=== PATIENT | male | born 1990 | race Hispanic/Latino ===

== ENCOUNTER 2019-08-07 01:33 | Emergency (ER) | payer OTHER ==
[2019-08-07] MEDS ORDERED: Iopamidol 612 MG/ML 100 ML Bottle IVPUSH ONE (01:39)
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
[2019-08-07] MEDS ORDERED: Diphtheria,Pertussis(Acell),Tetanus Vaccine 0.5 ML Syringe IM ONE (03:17)
--- NOTE | 2019-08-08 09:42 | CT ---
CT thoracic spine Technique: Multiple axial sections through the thoracic spine were obtained. Reconstructed coronal and sagittal images were reviewed. Findings: Vertebral body heights and disc spaces are maintained. No fracture is seen. No central canal stenosis is noted. No neural foraminal stenosis is seen. Impression: 1. Nothing acute is appreciated on CT study of the thoracic spine. Diagnostic code #1 I agree with preliminary report from [facility], finalized on 08/07/19, 4:38 AM Central Time
--- NOTE | 2019-08-08 09:42 | CT ---
CT lumbar spine Technique: Multiple axial sections were obtained through the lumbar spine. Reconstructed coronal and sagittal images were reviewed. Findings: Spondylitic defects are noted at L5-S1 on both sides. Vertebral body heights and disc spaces are maintained. No acute fracture is appreciated. No acute disc herniation is seen. No central canal stenosis or neural foraminal stenosis is seen. No abnormal subluxation is seen. Impression: 1. No acute abnormality is seen on CT study of the lumbar spine. Diagnostic code #1 I agree with preliminary report from [facility], finalized on , 4:35 AM Central Time
--- NOTE | 2019-08-09 09:46 | CT ---
CT chest Technique: Multiple axial sections through the chest were obtained. Intravenous contrast was utilized. Note: This exam has only now been made available for interpretation. Comparison: No prior chest imaging is available. Findings: Mediastinum and hilar regions appear within normal limits. No pericardial thickening is seen. No axillary adenopathy is noted. Incidental dependent atelectasis is seen within both posterior lung bases. Lungs show no pulmonary contusion. No pleural effusions or pneumothorax is seen. No discrete acute osseous abnormality is appreciated. Reconstructed images of the sternum appear intact. Impression: 1. Nothing acute is appreciated on CT study of the chest. Diagnostic code #2 I agree with preliminary report from [facility], finalized on 08/07/19, 4:[address] abdomen and pelvis Technique: Multiple axial sections were obtained from above the dome of the diaphragm inferiorly through the pubic symphysis. Intravenous contrast was utilized. No oral contrast has been given. Artifact noted from the patient's arms. Comparison: No prior abdominal imaging. Note: This exam has only now been made available for interpretation. Findings: Liver shows no focal parenchymal abnormality. Spleen appears without discrete abnormality. Adrenal glands show no nodule. Pancreas is within normal limits. Gallbladder contains no calcified gallstones. Kidneys show symmetric contrast enhancement without discrete abnormality. Upper pole of the left kidney is poorly seen due to streak artifact. Aorta shows no aneurysm. No retroperitoneal adenopathy is seen. No mesenteric abnormalities are appreciated. Appendix is seen which is normal in size. No pelvic mass or adenopathy is seen. No free fluid or inflammatory change is seen within the abdomen or within the pelvis. Bone window settings were reviewed which show no discrete fracture within the visualized osseous system. Impression: 1. Artifact as noted above. Nothing acute is definitely appreciated. Diagnostic code #2 I agree with preliminary report from [facility], finalized on 08/07/19, 4:24 AM Central Time
--- NOTE | 2019-08-09 10:11 | CT ---
CT facial bones Technique: Multiple axial sections through the facial bones were obtained. Reconstructed coronal and sagittal images were reviewed. Comparison: No previous study. Note: This exam has only now been made available for final interpretation. 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 Deformity of the mandible is seen which is either developmental or due to old healed fracture deformity. No acute fracture line is appreciated within the mandible. Right and left globes are symmetric in size. No orbital fracture is appreciated. No acute paranasal sinus disease is seen. Small nasal bone fracture is noted. Zygomatic arches are unremarkable. No maxillary wall fracture is seen. Impression: 1. Nasal bone fracture. 2. Other findings which are believed to be incidental as noted above. 3. No other acute finding is seen on CT study of the facial bones. Diagnostic code #3
--- NOTE | 2019-08-09 10:11 | CT ---
Head CT Technique: Multiple axial sections through the brain were obtained. Intravenous contrast was not utilized. Comparison: No previous intracranial imaging is available. Motion artifact is noted diminishing details. Note: This exam is only now been made available for final interpretation. Findings: Ventricles along with basal cisterns and sulci over the convexities are within normal limits for the patient's age. No abnormal parenchymal densities are definitely seen. No definite intracranial hemorrhage is seen. No midline shift or mass effect is seen. Bone window settings were reviewed which show the visualized paranasal sinuses and mastoid sinuses to appear clear. No acute calvarial abnormality is definitely appreciated. Impression: 1. Suboptimal study due to motion artifact. 2. No definite acute intracranial abnormality is identified. Diagnostic code #2 I agree with preliminary report from [facility], finalized on 08/07/19, 4:20 AM Central Time
--- NOTE | 2019-08-09 10:12 | CT ---
CT cervical spine Technique: Multiple axial sections through the cervical spine were obtained. Reconstructed coronal and sagittal images were obtained. Comparison: No previous cervical spine exam. Motion artifact is seen which diminishes details. Note: This exam has only now been made available for final interpretation. Findings: Vertebral body heights and disc spaces are maintained. No discrete fracture is appreciated. No bony central or bony neural foraminal stenosis is seen. No abnormal subluxation is seen. Impression: 1. No acute abnormality is appreciated on CT study of the cervical spine. 2. Motion artifact is present which could obscure more subtle areas of acute trauma. Diagnostic code #2 I agree with preliminary report from [facility], finalized on 08/07/19, 4:21 AM Central Time
== END 2019-08-07 04:05 | disposition home or self-care (01) ==
LOC: JD.ED 01:33
DX: S00.83XA Contusion of other part of head, initial encounter (principal); S80.01XA Contusion of right knee, initial encounter; S80.02XA Contusion of left knee, initial encounter; Z23 Encounter for immunization; V59.9XXA Occupant (driver) (passenger) of pick-up truck or van injured in unspecified traffic accident, initial encounter
CPT/HCPCS: 36415; 70450; 70486; 71260; 72125; 72128; 72131; 74177; 80053; 80320; 82150; 83605; 85025; 85610; 86850; 86900; 86901; 90471; 90700; 99285; Q9967; G0480